=== PATIENT | male | born 1990 | race Caucasian/White ===

== ENCOUNTER 2016-08-08 15:42 | Observation (INO) | payer OTHER ==
[~2016-08-08] VITALS: Ht 177.8 cm; Wt 106.6 kg
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
[2016-08-08] MEDS ORDERED: 0.9% Sodium Chloride 1,000 ML IV ONE (15:48)
[2016-08-08] MEDS ORDERED: Ondansetron 2 mg/mL 2 mL Inj IVPUSH PRN ×2 (15:50→17:10)
[2016-08-08 15:58] LABS: BASOPHILS % (AUTO) 0.2 % (0-3); EOSINOPHILS % (AUTO) 1.1 % (0-5); MONOCYTES % (AUTO) 3.8 % (4-12); Mean Corpuscular Volume 87.4 fL (81-100); NEUTROPHILS % (AUTO) 50.9 % (40-74); Platelet Count 48 bil/L (150-400)
[2016-08-08] MEDS: HYDROmorphone 1 mg/mL Inj IVPUSH PRN ×2 (16:00→18:03)
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
[2016-08-08] MEDS ORDERED: TdaP Vaccine 0.5 mL Inj IM ONE (16:25)
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
[2016-08-08 16:27] LABS: INR 0.97 ratio
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
[2016-08-08] MEDS ORDERED: Polyethylene Glycol (PEG) 17 Gm Powder PO PRN (17:10)
[2016-08-08] MEDS ORDERED: Alum-Mag Hydrox-Simeth 30 mL Suspension PO PRN (17:10)
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
[2016-08-08 17:22] LABS: APPEARANCE,URINE CLEAR (CLEAR,HAZY); COLOR,URINE YELLOW (YELLOW); OCCULT BLOOD,URINE LARGE (NEGATIVE); UROBILINOGEN,URINE NORMAL (NORMAL)
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
[2016-08-08 18:40] VITALS: BP 169/104; PULSE 99; RESP 27; O2SAT 93
[2016-08-08 18:46] VITALS: PULSE 97
[2016-08-08] MEDS ORDERED: HYDROmorphone 1 mg/mL Inj IVPUSH PRN (19:00)
[2016-08-08] MEDS: 0.9% Sodium Chloride 1,000 ML IV SCH (19:28)
[2016-08-08 23:14] LABS: Mean Corpuscular Hemoglobin 30.7 pg (27.0-35.0); Mean Corpuscular Volume 87.1 fL (81-100); Platelet Count 344 bil/L (150-400)
[2016-08-08 23:29] LABS: BASOPHILS % (AUTO) 0 % (0-3); EOSINOPHILS % (AUTO) 0 % (0-5); MONOCYTES % (AUTO) 11 % (4-12); NEUTROPHILS % (AUTO) 63 % (40-74)
[2016-08-08 23:35] VITALS: BP 162/105; PULSE 85; RESP 20; O2SAT 97
[2016-08-09] MEDS ORDERED: Labetalol 5 mg/mL 4 mL Inj IVPUSH ONE (00:30)
[2016-08-09 03:30] VITALS: BP 172/101; PULSE 62; RESP 20; O2SAT 99
[2016-08-09] MEDS: HYDROcodone-APAP 5-325 mg Tablet PO PRN ×2 (03:43→07:56)
[2016-08-09 04:29] VITALS: PULSE 75
--- NOTE | 2016-08-09 06:09 | NUR ---
Admit/BP pt admitted shortly before shift change, very drowsy and sedated, mother provides health history. Pt more awake as shift progresses, reports gen. aches and pains at 4-5/10. Dilaudid IV given x1 and then 2 Vicodin given since Dilaudid seems to cause sedation. Pt's Neuro's otherwise WNL, able to move all extremities. BP significantly elevated (see spreadsheet). MD called and order for IV Labetalol obtained and administered which had no effect on BP, MD called again and Clonidine given as ordered, BP improved somewhat. Pt pleasant and cooperative all shift.
[2016-08-09 06:15] VITALS: BP 158/100; PULSE 59
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
[2016-08-09] MEDS: 0.9% Sodium Chloride 1,000 ML IV SCH (07:50)
[2016-08-09 07:59] LABS: BASOPHILS % (AUTO) 0.1 % (0-3); EOSINOPHILS % (AUTO) 0 % (0-5); MONOCYTES % (AUTO) 9.4 % (4-12); Mean Corpuscular Hemoglobin 30.7 pg (27.0-35.0); Mean Corpuscular Volume 85.4 fL (81-100); NEUTROPHILS % (AUTO) 83.8 % (40-74); Platelet Count 316 bil/L (150-400)
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
[2016-08-09 08:32] VITALS: BP 138/62; PULSE 76; RESP 18; O2SAT 99
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
[2016-08-09] MEDS ORDERED: OXYC-474 PO (10:16)
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
--- NOTE | 2016-08-09 11:39 | NUR ---
Discharge Pt left at 1100 with mother via private car. IVx2 and tele removed. All discharge instructions gone over and understood, all questions answered. Prescription sent with pt to be filled. Follow up apt made and understood. All belongings taken with. Pt left A&Ox3 and vitals stable.
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
== END 2016-08-09 11:55 | disposition home or self-care (01) ==
LOC: SED 15:42 → PCC 17:36
PROVIDERS: ADMIT Internal Medicine; ATTEND Internal Medicine
DX: S27.321A Contusion of lung, unilateral, initial encounter (principal); S37.012A Minor contusion of left kidney, initial encounter; V47.6XXA Car passenger injured in collision with fixed or stationary object in traffic accident, initial encounter; Y93.89 Activity, other specified; D69.6 Thrombocytopenia, unspecified; F12.90 Cannabis use, unspecified, uncomplicated; Z23 Encounter for immunization
CPT/HCPCS: 36415; 70450; 71010; 71260; 72125; 72170; 73120; 74177; 80053; 81001; 81002; 82550; 82553; 85014; 85018; 85025; 85049; 85610; 85730; 86850; 86922; 90715; 93005; 94799; 96374; 96375; 96376; 99291; G0378; G0390; G0480; J1170; J2405; J7030; Q9967